=== PATIENT | female | born 1930 | race Caucasian/White ===

== ENCOUNTER 2016-06-07 17:03 | Inpatient (IN) | payer OTHER ==
[2016-06-07 18:02] VITALS: BMI 26.7
[2016-06-07] MEDS ORDERED: CARAFATE ONE (21:43)
[2016-06-07] MEDS: CARAFATE PO SCH (21:54)
[2016-06-08] MEDS: OXYCODONE PO PRN ×2 (02:38→21:29)
[2016-06-08] MEDS: CARAFATE PO SCH ×4 (06:32→20:26)
[2016-06-08] MEDS: PROTONIX PO SCH (06:32)
[2016-06-08] MEDS: ASPIRIN EC PO SCH (08:40)
--- NOTE | 2016-06-08 09:09 | HP ---
SOURCE: The source of this information is prior knowledge of the patient, review of her office records, her current chart as well as recent records at [facility]. PATIENT PROFILE: Ms. Rodas is an 85-year-old female resident of [place]. having had previous right hip surgery she wanted to have the left done. She was brought to [facility] on 06/03 and had such a surgery done. Her postop course was complicated by unexpected dysphagia. The day after surgery she actually got partially choked on some eggs. She had an esophagram that showed probable narrowing. She, on the , had an EGD that showed severe esophagitis and some narrowing. Because she had been given Xarelto postoperatively she could not have a dilatation. She was started on Carafate, a PPI with plans to have her on a soft diet and liquids and to treat this aggressively until she can at some future date have an EGD and dilatation. It was also decided that she would not be continued on Xarelto but instead simply on aspirin. Other than the incision, the pain, the decreased gait and a mild anemia of around 10, she didn't have any other real problems from her hip surgery. Altogether she was not walking well enough to want to go home and it was time to leave acute care; she chose to come here for further care. CHIEF COMPLAINT: "I need to get stronger." BRIEF HISTORY OF PRESENT ILLNESS: Ms. Rodas has had ongoing left hip pain PAST HISTORY: CHILDHOOD: Unremarkable. ALLERGIES/INTOLERANCE: FOSAMAX (dysphagia), PENICILLIN (question reaction years ago) CURRENT MEDICATIONS: Initially none but she comes out of [facility] with the followin. Aspirin 325 mg one a day 2. Oxycodone 5 mg every four hours p.r.n. pain HOSPITALIZATIONS/SURGERIES/PROCEDURES: She is 3, Para 3, AB 0. She had an upper GI/Barium swallow showing hiatal hernia, moderate to severe GERD on 08/17/04. She had an EGD with hiatal hernia and bile reflux GERD, Rizwan Hackett, 08/11/04. She had a positive urea slant, Dr. Marsh in July of 2004. She had a colonoscopy with diverticular changes, Rizwan Hackett on 08/20/04. She had colonoscopy with polyps, diverticular change, Dr. Salma Astorga on 10/10/09. Colonoscopy with diverticular changes, hemorrhoid changes, Dr. Rima Astorga, 02/26/13. She had a hysterectomy and left ovary removed for benign reasons, age 40. She had a right total hip, Es Zamandes, on 03/10/14. [facility] admissions include: 03/10 through 03/13/14 for right hip. [facility] admissions include 12/26 through 07/09 for GI bleed. FAMILY HISTORY: Diabetes in daughter, CVA in father, ovarian cancer in mother. HABITS: Never smoked or used alcohol. SOCIAL HISTORY: Three children, in 1955 and her 09/20/08 after a long marriage. 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 REVIEW OF SYSTEMS: GENERAL: Prior to this her weight has been stable. INTEGUMENT: No recent rash or wound. HEENT: No recent headache or visual change. NECK: No mass or pain. CHEST: No cough or wheeze. CARDIOVASCULAR: No chest pain, palpitations, only edema in the left lower leg. GI: No melena, hematochezia. : She couldn't void at [facility] and had to have a Chiang placed. MUSCULOSKELETAL/NEUROLOGIC: No TIA, CVA history or symptoms. PHYSICAL EXAMINATION: VITALS: Temperature 97.4, pulse 89, BP 150/74 left; 142/72 right, respirations 16, 02 sat 94% on room air. GENERAL: Younger than stated age white female in no obvious distress. INTEGUMENT: Eyegrounds are pink. Nonicteric sclerae. Mucous membranes moist. Only left lower extremity mild ankle edema. HEENT: Facial symmetry. Pupils equal, round, extraocular movements intact. NECK: No visible lymphadenopathy, thyromegaly, mass seen or felt and quite supple, nontender. CHEST: Clear. CARDIOVASCULAR: Regular S1, S2 without murmur or bruit. Distal pulses intact. GI: Soft. No rebound, guarding, mass or tenderness. MUSCULOSKELETAL/NEUROLOGIC: Bandages over the left hip area that are dry. Four quadrant movements are slowly equal and symmetric. She was not ambulated. PSYCHIATRIC: Alert, oriented times three. Pleasant personality. ASSESSMENT/PROBLEM LIST: 0. 85-year-old white female advanced age. 1. Allergies/intolerances - see above. 2. Procedural history - see above now inclusive left total hiop. 3. Family history - see above. 4. 3, Para 3, AB 0. 5. Menopausal. 6. Hiatal hernia by various modalities. 7. Gastroesophageal reflux by various modalities. 8. History of H. Pylori. 9. History of upper GI bleed. 10. Severe esophagitis and esophageal stricture. 11. Esophageal stricture. 12. Dysphagia. 13. Diverticular disease on colonoscopy. 14. Polyp disease by colonoscopy. 15. . 16. Degenerative joint disease - diffuse. 17. 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 18. Osteopenia/porosis - resistant for recommendations for intervention. 19. History of urinary incontinence. 20. Postop urinary retention. 21. History of gait difficulties. 22. History of depression. 23. Fatty liver by previous imaging. 24. History of hyperlipidemia. REASON FOR ADMISSION: # POSTOP LEFT HIP # LEFT HIP INCISION # LEFT HIP PAIN # ANEMIA - APPROXIMATELY 10 WITH COMPONENTS OF SURGICAL BLOOD LOSS # ANTICOAGULATION NEEDS - FROM XARELTO TO SIMPLY ASPIRIN # ACUTE GAIT DECLINE (ON CHRONIC) # URINARY RETENTION # ACUTE DYSPHAGIA PLAN: 1. PT/OT and try to increase her ambulation to that safe for home 2. Loosely follow her labs 3. Soft diet (watch for any signs of worsening) 4. Above mentioned medications in addition to Carafate and PPI 5. Eventual return back to GI for dilatation 6. Will try to wean Chiang at some point MTDD
--- NOTE | 2016-06-08 12:56 | RS.OTINEVL ---
Subjective - Patient information Date of Evaluation: 06/08/16 Date of Arrival on Unit: 06/07/16 Admitted From:: Facility Transfer Usual Living Arrangement: Alone Living Arrangement Comments: Pt lives at home alone and has a basement where her laundry is done. Pt has a good friend that will help her with laundry. Home Environment: House, Stairs (many), Rail Medical History Comments:: Left TAYLOR, Right TAYLOR years ago, hemorrhoids, osteoporosis, diverticulosis, gastroenteritis, joint pain. LATEX ALLERGY?: No Surgical History: Hip Replacement Surgical History Comments:: Left total hip replacement at [facility]. R TAYLOR years ago. Subjective Information/ Patient Comments:: I had the left hip done at [facility]. I had the right one done years ago and I went home then but I was younger. - Level of function Abilities prior to this admission: Patient was living home alone and completing her ADLS independently. Patient did not use a RW at this time. Current Level of Function: Partially Dependent Current Equipment Used at Home: Rolling walker, BSC over the toilet. Pain Assessment - Pain Pain Score: 0 Side: left Pain Location Body Site: Hip Pain Aggravating Factors: Changing Position, Standing Pain Alleviating Factors: Ice, Medication, Position Change Interventions - Objective Patient Orientation: Person, Place, Situation Observation: Pt appears to be doing well since her surgery. Pt has no edema in feet. Interventions - ROM Right Upper Extremity AROM: WFL's Left Upper Extremity AROM: WFL's - Strength Right Upper Extremity Strength: Mild Weakness Left Upper Extremity Strength: Mild Weakness - Sensation Right Upper Extremity Sensation: Intact/Normal Left Upper Extremity Sensation: Intact/Normal Balance - Sitting Balance Static Sitting Balance: Good Dynamic Sitting Balance: Good - Standing Balance Static Standing Balance: Fair Dynamic Standing Balance: Fair ADL Skills - Self Feeding Self Feeding: Independent - Grooming Grooming: Min Assist - Bathing Bathing UE: CGA Bathing LE: Min Assist - Dressing Dressing UE: CGA Dressing LE: Mod Assist - Toilet Management Toileting Management: CGA Functional Mobility - Bed Mobility Rolling R/L: Min Assist Scooting: CGA Supine to Sit: Min Assist Sit to Supine: Min Assist - Transfers Sit to Stand: Min Assist Stand to Sit: Min Assist Stand Pivot Transfers: Min Assist - Ambulation Weight Bearing Status: WBAT Assistive Device Used: Rolling Walker Assistance needed with Ambulation: Min Assist, 1 person assist - Safety Awareness Safety Awareness: Poor Additional Treatment Performed - Additional units charged ADL: 15 - Time with patient Total treatment time: 34 Activities Patient Interests:: Watching Television, Visiting/Socializing Patient Education Patient Education: Education of diagnosis, Home Exercise Program, Home Safety, Education of Plan of Care Teaching Recipient: Patient Teaching Methods: Discussion Assessment Problem List:: Decreased level of function, Weakness Rehab Potential: Good Further Therapy Indicated?: Yes Short Term Goals - Goals GOAL 1: Pt to increase BUE strength to 4/5 to increase I and safety. Goal to be met by: 06/15/16 GOAL 2: Pt to tolerate dynamic Standing balance to Fair Goal to be met by: 06/15/16 GOAL 3: Pt to be independent with home exercise program. Goal to be met by: 06/15/16 Plate Colorer Goals GOAL 1: Pt to be independent with BUE strength to 4+/5. Goal to be met by: 06/22/16 GOAL 2: Pt to increase dyn. std. balance to F/G with RW. Goal to be met by: 06/22/16 GOAL 3: Pt to be modified Independent with ADL at discharge. Goal to be met by: 06/22/16 Plan Plan of Care: Therapeutic EX, Neuromuscular Re-Educ, Therapeutic Activity, Self- Care/Home Management Frequency of Treatment: 1-2 X day, as tolerated Duration of Treatment: 2 Weeks Anticipated Discharge Destination: Home
--- NOTE | 2016-06-08 15:07 | RS.PTINEVL ---
Subjective - Patient information Date of Evaluation: 06/08/16 Date of Arrival on Unit: 06/07/16 Admitted From:: Facility Transfer Usual Living Arrangement: Alone Living Arrangement Comments: Pt lives at home alone and has a basement where her laundry is done. Pt has a good friend that will help her with laundry. Home Environment: House, Stairs (many) (to the basement, one step to get into home ), Rail Medical History Comments:: Left TAYLOR, Right TAYLOR years ago, hemorrhoids, osteoporosis, diverticulosis, gastroenteritis, joint pain. LATEX ALLERGY?: No Surgical History Comments:: Left total hip replacement at [facility]. R TAYLOR years ago. Subjective Information/ Patient Comments:: Patient states she is not in very much pain. States she cannot remember if she has had pain medication. States her right hip surgery went much better than this one on the left hip. States she came here to get stronger and be able to go home and not burden anyone. 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 Interventions - Objective Patient Orientation: Person, Place, Time, Situation Range of Motion - ROM Right Upper Extremity AROM: WFL's Left Upper Extremity AROM: WFL's Right Lower Extremity AROM: WFL's Left Lower Extremity AROM: Moderate limitation (left hip) Muscle Strength - Muscle Strength Right Upper Extremity Strength: Normal Left Upper Extremity Strength: Normal Comments:: Left LE strength at least 3/5 at the hip, knee 4 to 4+/5, ankle 4+/ 5. right LE generally 4 to 4+/5 throughout. Sensation - Sensation Right Lower Extremity Sensation: Intact/Normal Left Lower Extremity Sensation: Intact/Normal Balance - Sitting Balance and Reactions Static Sitting Balance: Good (-) Dynamic Sitting Balance: Good (-) - Standing Balance and Reactions Static Standing Balance: Fair (+) Dynamic Standing Balance: Fair (+) Functional Mobility - Bed Mobility Supine to Sit: Min Assist, 1 person assist, Verbal Cues, Tactile Cues Sit to Supine: Mod Assist, 1 person assist, Verbal Cues, Tactile Cues Comments:: Patient demonstrates difficulty initiating movement of the left LE for bed mobility. Requires assistance to bring the left LE to the side of the bed. - Transfers Sit to Stand: CGA, Min Assist, 1 person assist, Verbal Cues, Tactile Cues Stand to Sit: CGA, 1 person assist, 2 person assist Stand Pivot Transfers: Min Assist, 1 person assist, 2 person assist Comments:: Patient pulls herself up using the walker. Verbal cues given to push from the bed with her hands for sit to stand transfers. When returning to the bed, she wants to leave the walker before turning to sit. Explained the need to keep the walker with her when she turns around and sits down on bed or chair for safety. - Safety Awareness Safety Awareness: Poor Ambulation - Ambulation Weight Bearing Status: FWB Assistive Device Used: Rolling Walker Distance: 140 feet Assistance needed with Ambulation: CGA, 1 person assist, 2 person assist, Verbal Cues, Tactile Cues Gait Deviations: Narrow Based gait, Step-to gait, Forward posture, Short stride , Lacks step continuity Ambulation Comments: Patient scores 10/28 on Tinetti Assessment, which places her at a high risk for falls. Factors Affecting Ambulation: Decreased Balance, Pain, Weakness, Decreased ROM, Decreased Safety, Limited Endurance Treatment time - Time with patient Total treatment time: 19 (mins) Patient Education - Education Patient Education: Education of diagnosis, Education of Plan of Care Teaching Recipient: Patient Teaching Methods: Discussion Assessment - Assessment Problem List:: Decreased level of function, Requires training/education, Decreased safety/Risk of falls Rehab Potential: Good Further Therapy Indicated?: Yes Comments: Patient presents to be at a high risk for falls. She lives alone and was independent prior to this surgery. She demonstrates the need for strengthening and safety training with all mobility, including ambulation, to decrease her risk for falls and increase her functional ability. Short Term Goals GOAL #1: Supine to sit with CGA of one and verbal cues. Goal to be met by: 06/11/16 GOAL #2: Pt uses UE to push from seated surface consistently with sit to stand. Goal to be met by: 06/11/16 GOAL #3: Pt amb. with RW 150 feet with CGA and good base of support. Goal to be met by: 06/11/16 Retirement Goals GOAL #1: All bed mobility is independent. Goal to be met by: 06/15/16 GOAL #2: Pt independent with all transfers with good safety. Goal to be met by: 06/15/16 GOAL #3: Pt amb. with RW, household distances with good safety independently. Goal to be met by: 06/15/16 Plan Plan of Care: Therapeutic EX, Neuromuscular Re-Educ, Therapeutic Activity, Self- Care/Home Management Frequency of Treatment: 1-2 X day, as tolerated Duration of Treatment: 1 Week Anticipated Discharge Destination: Home
[2016-06-09] MEDS: PROTONIX PO SCH (05:39)
[2016-06-09] MEDS: CARAFATE PO SCH ×4 (05:39→20:27)
[2016-06-09] MEDS: ASPIRIN EC PO SCH (09:55)
[2016-06-09] MEDS ORDERED: ATIVAN PO STA (20:05)
[2016-06-10] MEDS: PROTONIX PO SCH (05:54)
[2016-06-10] MEDS: CARAFATE PO SCH ×4 (05:54→20:29)
[2016-06-10] MEDS: ASPIRIN EC PO SCH (09:00)
[2016-06-11] MEDS: PROTONIX PO SCH (06:01)
[2016-06-11] MEDS: CARAFATE PO SCH ×4 (06:01→21:09)
[2016-06-12] MEDS: OXYCODONE PO PRN (00:07)
[2016-06-12] MEDS: PROTONIX PO SCH (05:39)
[2016-06-12] MEDS: CARAFATE PO SCH ×4 (05:39→21:22)
[2016-06-13] MEDS: CARAFATE PO SCH ×2 (05:34→11:27)
[2016-06-13] MEDS: PROTONIX PO SCH (05:34)
[2016-06-13 06:15] VITALS: BP 118/63; TEMP 98.4
--- NOTE | 2016-06-14 08:42 | DS ---
SOURCE: The source of this information is prior knowledge of the patient, review of her office records, her current chart as well as recent records at [facility]. PATIENT PROFILE: Ms. Rodas is an 85-year-old female resident of [place]. having had previous right hip surgery she wanted to have the left done. She was brought to [facility] on 06/03 and had such a surgery done. Her postop course was complicated by unexpected dysphagia. The day after surgery she actually got partially choked on some eggs. She had an esophagram that showed probable narrowing. She, on the , had an EGD that showed severe esophagitis and some narrowing. Because she had been given Xarelto postoperatively she could not have a dilatation. She was started on Carafate, a PPI with plans to have her on a soft diet and liquids and to treat this aggressively until she can at some future date have an EGD and dilatation. It was also decided that she would not be continued on Xarelto but instead simply on aspirin. Other than the incision, the pain, the decreased gait and a mild anemia of around 10, she didn't have any other real problems from her hip surgery. Altogether she was not walking well enough to want to go home and it was time to leave acute care; she chose to come here for further care. CHIEF COMPLAINT: "I need to get stronger." BRIEF HISTORY OF PRESENT ILLNESS: Ms. Rodas has had ongoing left hip pain PAST HISTORY: CHILDHOOD: Unremarkable. ALLERGIES/INTOLERANCE: FOSAMAX (dysphagia), PENICILLIN (question reaction years ago) CURRENT MEDICATIONS: Initially none but she comes out of [facility] with the followin. Aspirin 325 mg one a day 2. Oxycodone 5 mg every four hours p.r.n. pain HOSPITALIZATIONS/SURGERIES/PROCEDURES: She is 3, Para 3, AB 0. She had an upper GI/Barium swallow showing hiatal hernia, moderate to severe GERD on 08/17/04. She had an EGD with hiatal hernia and bile reflux GERD, Rizwan Hackett, 08/11/04. She had a positive urea slant, Dr. Marsh in July of 2004. She had a colonoscopy with diverticular changes, Rizwan Hackett on 08/20/04. She had colonoscopy with polyps, diverticular change, Dr. Salma Astorga on 10/10/09. Colonoscopy with diverticular changes, hemorrhoid changes, Dr. Rima Astorga, 02/26/13. She had a hysterectomy and left ovary removed for benign reasons, age 40. She had a right total hip, Es Zamandes, on 03/10/14. [facility] admissions include: 03/10 through 03/13/14 for right hip. [facility] admissions include 12/26 through 07/09 for GI bleed. FAMILY HISTORY: Diabetes in daughter, CVA in father, ovarian cancer in mother. HABITS: Never smoked or used alcohol. SOCIAL HISTORY: Three children, in 1955 and her 09/20/08 after a long marriage. 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 REVIEW OF SYSTEMS: GENERAL: Prior to this her weight has been stable. INTEGUMENT: No recent rash or wound. HEENT: No recent headache or visual change. NECK: No mass or pain. CHEST: No cough or wheeze. CARDIOVASCULAR: No chest pain, palpitations, only edema in the left lower leg. GI: No melena, hematochezia. : She couldn't void at [facility] and had to have a Chiang placed. MUSCULOSKELETAL/NEUROLOGIC: No TIA, CVA history or symptoms. PHYSICAL EXAMINATION: VITALS: Temperature 97.4, pulse 89, BP 150/74 left; 142/72 right, respirations 16, 02 sat 94% on room air. GENERAL: Younger than stated age white female in no obvious distress. INTEGUMENT: Eyegrounds are pink. Nonicteric sclerae. Mucous membranes moist. Only left lower extremity mild ankle edema. HEENT: Facial symmetry. Pupils equal, round, extraocular movements intact. NECK: No visible lymphadenopathy, thyromegaly, mass seen or felt and quite supple, nontender. CHEST: Clear. CARDIOVASCULAR: Regular S1, S2 without murmur or bruit. Distal pulses intact. GI: Soft. No rebound, guarding, mass or tenderness. MUSCULOSKELETAL/NEUROLOGIC: Bandages over the left hip area that are dry. Four quadrant movements are slowly equal and symmetric. She was not ambulated. PSYCHIATRIC: Alert, oriented times three. Pleasant personality. ASSESSMENT/PROBLEM LIST: 0. 85-year-old white female advanced age. 1. Allergies/intolerances - see above. 2. Procedural history - see above now inclusive left total hiop. 3. Family history - see above. 4. 3, Para 3, AB 0. 5. Menopausal. 6. Hiatal hernia by various modalities. 7. Gastroesophageal reflux by various modalities. 8. History of H. Pylori. 9. History of upper GI bleed. 10. Severe esophagitis and esophageal stricture. 11. Esophageal stricture. 12. Dysphagia. 13. Diverticular disease on colonoscopy. 14. Polyp disease by colonoscopy. 15. . 16. Degenerative joint disease - diffuse. 17. 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 18. Osteopenia/porosis - resistant for recommendations for intervention. 19. History of urinary incontinence. 20. Postop urinary retention. 21. History of gait difficulties. 22. History of depression. 23. Fatty liver by previous imaging. 24. History of hyperlipidemia. REASON FOR ADMISSION: # POSTOP LEFT HIP # LEFT HIP INCISION # LEFT HIP PAIN # ANEMIA - APPROXIMATELY 10 WITH COMPONENTS OF SURGICAL BLOOD LOSS # ANTICOAGULATION NEEDS - FROM XARELTO TO SIMPLY ASPIRIN # ACUTE GAIT DECLINE (ON CHRONIC) # URINARY RETENTION # ACUTE DYSPHAGIA HOSPITAL COURSE: She received [facility] care and supervision; her incision was healing nicely at discharge. Her vitals remained stable. She swallowed well and there was no signs of choking; she was continued on Protonix and Carafate. She received therapy; initially she wanted to go home early but therapy did not think she was ready; by the date of discharged they thought she was markedly improved. She had labs while here. She did have a brief epistaxis and we stopped her Aspirin as she was now up and about fairly regularly. DISCHARGE ASSESSMENT/PROBLEM LIST (CHANGED FROM ADMISSION): # Post Op right hip # Post Op right hip incision- doing well # Post Op right hip pain- doing well # Post Op right hip gait declined- improving # Post Op right hip anemia- mild and tolerated # Post Op anticoagulation- Aspirin ( the cause of severe esophagitis); stopped for epistaxis # Brief Epistaxis # Esophagitis # Post Op dysphagia PLAN: 1. Discharge two medications A. Oxycodone [address] Nicole-Ortho earlier B. Protonix 41mg a day #30 0 refills C. Carafate liquid 10 cc AC and HS for two weeks- sent to her drug store D. Home Health referral; This follows a face to face visit today and a need for her to have Home Health to monitor all the above problems and to continue her therapy. 2. Followup A. Dr. Zhao in one week B. Dr. Corey Gaytan as he directed. Prognosis: Guarded Condition: Stable improving. MTDD
--- NOTE | 2016-06-16 07:28 | PN ---
DATE OF VISIT: 06/08/16 SUBJECTIVE: Ms. Rodas, because of increasing pain, went in for a left total hip. The day after surgery she got choked on her eggs; upper GI swallow and EGD proved that she had some esophagitis and possible stricture. Decision was made since she had had one Xarelto to treat this conservatively with Carafate and Protonix. Since this and in general, she was not progressing as much as her previous orthopedic intervention; she has elected to come here for therapy and skilled care nursing. She feels better today, she has actually walked some with therapy. She is having no dysphagia of soft foods and drink that she is taking here. OBJECTIVE: V/S: Temperature 97.9, pulse 73, BP 132/76, respirations 20. GENERAL: No obvious distress. CHEST: Clear. CARDIOVASCULAR: S1, S2 without murmur. GI: Nontender. MUSCULOSKELETAL/NEUROLOGIC: Her hip incision is intact and dry. ASSESSMENT: # Postop left total hip # Postop left hip incision # Left hip postop pain # Left hip postop anticoagulation being treated with aspirin and increased activity # Dysphagia # Esophagitis # Postop anemia PLAN: 1. Continue therapy 2. Labs in a few days MTDD
--- NOTE | 2016-06-16 13:29 | PN ---
DATE OF VISIT: 06/09/16 SUBJECTIVE: The patient was transferred here from [facility] after having a total hip. It was complicated by dysphagia; she had food that actually hung up in her esophagus for a period of time. An EGD showed severe esophagitis and since she had had Xarelto it was decided that she couldn't be dilated so she is being treated with Carafate and a PPI. All of this slowed down her ambulation and reaching a point where she could go home. Now today she says she has had a wonderful day and wants to go home tonight. OBJECTIVE: V/S: Temperature 97.7, pulse 102, respirations 16, BP 126/67. GENERAL: No acute distress. CHEST: Clear. CARDIOVASCULAR: S1, S2 without murmur. ASSESSMENT: # Postop left hip # Postop left hip incision # Left hip pain # Anemia - approximately 10 with components of surgical blood loss # Anticoagulation - from Xarelto to simply aspirin # Acute gait decline (acute on chronic) - improved # Urinary retention - resolved # Acute dysphagia - associated with esophagitis # Esophagitis - being treated PLAN: 1. She accepted the fact that at this late hour I didn't feel how we could make the best discharge; we needed input from therapy, nursing and even family or no one is surprised by going home tonight. 2. Maybe home tomorrow. SANIYA
--- NOTE | 2016-06-16 13:37 | PN ---
DATE OF VISIT: 06/10/16 SUBJECTIVE: I contacted the staff earlier this morning; therapy did not feel that she was able to go home. They note that she continues to have some weakness and instability in her gait. In addition to this, she had nonsustained episode of epistaxis on her aspirin 325 mg; which we held. She is disappointed. She denies chest pain, shortness of breath. OBJECTIVE: V/S: Temperature 97.9, pulse 84, respiratory rate 16, BP 154/72. GENERAL: No obvious distress. HEENT: Dried blood in the left nostril, Kiesselbach Plexus, no active bleeding. CHEST: Clear. CARDIOVASCULAR: S1, S2 without murmur. ASSESSMENT: # Postop left hip # Left hip incision - doing well. # Left hip pain - doing well. # Anemia - approximately 10 with components of surgical blood loss # Anticoagulation needs- from Xarelto to simple aspirin 325 and now placing this on hold. # Epistaxis - brief today # Rhinitis - interior nasal irritation # Acute gait declne (acute on chronic) - improved # Urinary retention - resolved # Acute dysphagia - doing well with diminished diet # Esophagitis - treated with Carafate and PPI PLAN: 1. She agrees to stay through the weekend into the first part of next week. 2. Holding aspirin. SANIYA
== END 2016-06-13 17:20 | disposition home or self-care (01) | DRG 560 ==
LOC: MEDSURG B 17:03
PROVIDERS: ADMIT Family Medicine; ATTEND Family Medicine
DX: Z47.1 Aftercare following joint replacement surgery (principal); Z96.642 Presence of left artificial hip joint; M25.552 Pain in left hip; D62 Acute posthemorrhagic anemia; D68.32 Hemorrhagic disorder due to extrinsic circulating anticoagulants; R33.9 Retention of urine, unspecified; R13.19 Other dysphagia; R26.2 Difficulty in walking, not elsewhere classified; R04.0 Epistaxis; T45.515A Adverse effect of anticoagulants, initial encounter; Y92.230 Patient room in hospital as the place of occurrence of the external cause; Z79.82 Long term (current) use of aspirin
CPT/HCPCS: 87081; 97802; 97803

== ENCOUNTER 2016-08-01 07:06 | Day surgery (SDC) ==
[2016-08-01] MEDS ORDERED: LIDOCAINE 1% 20 ML MDV ID ONE (07:15)
[2016-08-01] MEDS ORDERED: LIDOCAINE 1% 20 ML MDV ONE (07:15)
[2016-08-01] MEDS ORDERED: VERSED ONE (08:45)
[2016-08-01] MEDS ORDERED: SUBLIMAZE ONE (08:45)
[2016-08-01] MEDS ORDERED: DIPRIVAN 20 ML VIAL IVP ONE (08:45)
[2016-08-01 10:00] VITALS: BP 130/61
[2016-08-01 10:10] VITALS: TEMP 98
--- NOTE | 2016-08-02 09:22 | OP ---
PROCEDURE: EGD (ESOPHAGOGASTRODUODENOSCOPY) with Morales dilation. ENDOSCOPIST: Víctor RAZA M.D. INDICATION: Dysphagia INSTRUMENT: GIFH-190. MEDICATION: PER ANESTHESIA. PROCEDURE: The patient was positioned for endoscopy. The oropharynx was sprayed with Cetacaine spray and the endoscope was advanced through the bite block into the esophagus and from there advanced to the duodenum. The duodenum was normal. The pylorus was patent. The antrum is normal. A hiatus hernia is seen on the retro flex exam. The Z-line was at approximately 33cm. She had a very torturous distal esophagus. The scope was withdrawn and a 46 German Morales was gentle passed without difficult. She tolerated the procedure without immediate complication. PLAN: 1. Repeat as need. 2. She should continue the PPI. 3. I suspect a lot of her symptoms were related to her esophagitis. 4. She can resume anticoagulation today if it is indicated. CC: Dr. Zhao ADDENDUM: There were no photographs with this exam related instrument malfunction. MTDD
== END 2016-08-01 10:25 | disposition home or self-care (01) ==
LOC: SURG 07:06
PROVIDERS: ATTEND Internal Medicine Gastroenterology
DX: R13.10 Dysphagia, unspecified (principal); K44.9 Diaphragmatic hernia without obstruction or gangrene; K22.8 Other specified diseases of esophagus

== ENCOUNTER 2016-09-24 08:35 | Emergency (ER) ==
[2016-09-24 08:45] VITALS: TEMP 96.8; BMI 24.4
--- NOTE | 2016-09-24 08:55 | ED.PDOC ---
General ED Provider: Dr. LINA GALICIA Chief Complaint: Fall Stated Complaint: patient is an 86 year old female who statse she a never fallen before, was having trouble opening her door and her hands were full and lost her balance and fell. c/o pain to left groin area and left shoulder. Unable to bear weight due to pain. states left shoulder is sore. Has had prior bilateral hip replacemt. At rest he pain is minimal took Tylenol last night and this Morning. Time Seen by Physician: 08:52 Mode of Arrival: Wheelchair Information Source: Patient Exam Limitations: No limitations Primary Care Provider: BRAULIO MARTINEZ Nursing and Triage Documentation Reviewed and Agree: Yes Musculoskeletal Complaint Exam - Shoulder Pain Complaint/Exam Mechanism of Injury: Reports: Trauma Onset/Duration: 1 day Symptoms Are: Still present Timing: Intermittent Initial Severity: Moderate Current Severity: Mild Location: Reports: Diffuse Character: Reports: Aching Alleviating: Reports: Rest Aggravating: Reports: None Associated Signs and Symptoms: Denies: Swelling, Redness, Bruising, Fever, Weakness, Numbness, Tingling DVT Risk Factors: Reports: None Septic Arthritis Risk Factors: Reports: None Related Surgical History: Reports: None Shoulder Findings: Absent: Swelling, Ecchymosis, Abnormal contour, Rotation, Ligamentous instability, Laceration, Erythema, Warmth, Blisters, Foreign body, Adson's Sign Limited Range of Motion: Absent: Abduction, Adduction, Flexion, Extension, Internal rotation, External rotation, Rotator cuff muscles, Rotator cuff insertion Differential Diagnoses: AC Seperation, Sprain, Strain, Tendonitis - Hip/Pelvis Complaint/Exam Location of Pain: Reports: Groin, Pelvis Mechanism of Injury: Reports: Trauma Onset/Duration: 1 day Symptoms Are: Still present Initial Severity: Severe Current Severity: Moderate Character: Reports: Throbbing Aggravating: Reports: Movement, Weight bearing Alleviating: Reports: Rest Associated Signs and Symptoms: Denies: Swelling, Redness, Bruising, Fever, Weakness, Dizziness, Syncope, Abdominal pain, Knee pain Able to Bear Weight: No Septic Arthritis Risk Factors: Reports: None Related Surgical History: Reports: Joint Replacement Pelvis Palpation: Stable Hip/Pelvis Findings: Absent: Extremity shortened, Swelling, Ecchymosis, Erythema , Warmth, Blisters Tenderness: Present: Left, PSIS Range of Motion Limited In: Absent: Flexion, Extension, Abduction, Adduction, Internal rotation, External rotation NV Bundle Intact Distal to Injury: No Differential Diagnoses: Sciatica, Sprain, Strain Review of Systems - Review Of Systems Constitutional: Reports: No symptoms Eyes: Reports: No symptoms Ears, Nose, Mouth, Throat: Reports: No symptoms Respiratory: Reports: No symptoms Cardiac: Reports: No symptoms GI: Reports: No symptoms : Reports: No symptoms Musculoskeletal: Reports: Joint pain Skin: Reports: No symptoms Neurological: Reports: Anxiety Endocrine: Reports: No symptoms Hematologic/Lymphatic: Reports: No symptoms All Other Systems: Reviewed and Negative Past Medical History - Past Medical History Previously Healthy: Yes Endocrine: Reports: None Cardiovascular: Reports: None Respiratory: Reports: None Hematological: Reports: None Gastrointestinal: Reports: None Genitourinary: Reports: None 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 ), Unknown - Family History Family History: Reports: Unknown - Social History Smoking Status: Never smoker Hx Substance Use: No Alcohol Screening: Occasionally Physical Exam - Physical Exam Appearance: Well-nourished, Thin Ill-appearing: Mild Eyes: ANNELIESE, EOMI, Conjunctiva clear ENT: Ears normal, Nose normal, Oropharynx normal Neck: Supple Respiratory: Airway patent, Breath sounds clear, Breath sounds equal, Respirations nonlabored Cardiovascular: RRR, Pulses normal, No rub, No murmur GI/: Soft, Nontender, No masses, Bowel sounds normal, No Organomegaly Musculoskeletal: Normal strength, ROM intact, No edema, No calf tenderness Skin: Warm, Dry, Normal color Neurological: Sensation intact, Motor intact, Reflexes intact, Cranial nerves intact, Alert, Oriented Psychiatric: Anxious Interpretation - Radiology Interpretation Radiology Interpretation By: Radiologist Radiology Results: Positive (Mildly displaced Pubic rami fracture) Exam Interpreted: CT Scan Radiology Interpretation By: ED Physician Radiology Results: Negative Exam Interpreted: Other (left shoulder ) Re-Evaluation - Re-Evaluation Time of Re-Evaluation: 10:28 Status: Improved Critical Care Note - Critical Care Note Total Time (mins): 0 Comments: offered Admission but declined Course - Course Orders, Labs, Meds: Orders Category Date Time Status CT PELVIS W/O CONTRAST Stat RADS 09/24/16 08:57 Completed SHOULDER, LEFT MIN 2V Stat RADS 09/24/16 08:57 Completed Vital Signs: Temp Pulse Resp BP Pulse Ox 09/24/16 10:30 77 16 140/70 99 09/24/16 08:38 96.8 F L 82 16 166/70 H 97 Departure - Departure Time of Disposition: 10:19 Disposition: HOME SELF-CARE Discharge Problem: Pubic ramus fracture, Shoulder sprain Instructions: Pelvic Fracture (ED), Shoulder Sprain (ED) Condition: Stable Pt referred to PMD for follow-up: Yes Additional Instructions: Take over the counter pain medication Take Tramadol for severe pain Return if worse. Follow up in 3 days Prescriptions: Tramadol HCl [Ultram] 50 mg PO Q6H PRN #25 tablet PRN Reason: Severe Pain Allergies/Adverse Reactions: Allergies Penicillins Adverse Reaction (Unverified 09/24/16 08:46) Home Medications: Ambulatory Orders Calcium Carbonate [Calcium] 500 mg PO DAILY 08/01/16 Vitamin D3/Folic Acid [Roxifol-D Tablet] 500 unit PO DAILY 08/01/16 Tramadol HCl [Ultram] 50 mg PO Q6H PRN #25 tablet 09/24/16 Disposition Discussed With: Patient, Family
--- NOTE | 2016-09-24 09:26 | DI ---
EXAM: Left shoulder three view HISTORY: Fall, shoulder pain COMPARISON: None FINDINGS: No fracture or dislocation. 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 Mild osteoarthritis acromioclavicular joint with join t space narrowing. Several well marginated ossifications or calcifications about the shoulder could represent small loose body formation. Humeral head is high-riding. IMPERSSION: 1. No fracture or dislocation. 2. Mild to moderate osteoarthritis. Possible loose body formation. 3. High-riding humeral head suggesting rotator cuff tear.
--- NOTE | 2016-09-24 09:55 | CT ---
EXAM: CT scan of the pelvis without contrast HISTORY: Patient fell, pain TECHNIQUE: Imaging of the pelvis was performed without contrast. Axial images and coronal and sagi ttal reconstructions were provided for interpretation. FINDINGS: The patient has had previous total bilateral hip arthroplasty. There is a fracture of th e left inferior pubic ramus. The sacrum appears intact. There is a normal appearance of the iliac wings. There is additional fracture of the medial aspect of the left superior pubic ramus near the j unction with the pubic bone as well as more laterally along the junction with the left acetabulum. IMPRESSION: There is a mildly displaced fracture of the inferior pubic ramus. There are additional fractures of the medial and lateral superior left pubic ramus. There has been previous total bilateral hip arthroplasty.
[2016-09-24 10:55] VITALS: BP 140/70
== END 2016-09-24 10:39 | disposition home or self-care (01) ==
LOC: ED 08:35
DX: S32.592A Other specified fracture of left pubis, initial encounter for closed fracture (principal); S43.402A Unspecified sprain of left shoulder joint, initial encounter; W19.XXXA Unspecified fall, initial encounter
CPT/HCPCS: 99283

== ENCOUNTER 2017-04-24 08:49 | Day surgery (SDC) ==
[2017-04-24] MEDS ORDERED: LIDOCAINE 1% 20 ML MDV ID ONE (09:10)
[2017-04-24] MEDS ORDERED: LIDOCAINE 1% 20 ML MDV ID STA (09:15)
[2017-04-24] MEDS ORDERED: DIPRIVAN 20 ML VIAL IVP ONE (10:15)
[2017-04-24] MEDS ORDERED: VERSED ONE (10:15)
[2017-04-24 11:12] VITALS: BP 118/69; TEMP 97.7
--- NOTE | 2017-04-25 08:34 | OP ---
PROCEDURE: COLONOSCOPY TO THE CECUM. ENDOSCOPIST: Víctor RAZA M.D. INDICATION: RECTAL BLEEDING INSTRUMENT: PCFH-190. MEDICATION: PER ANESTHESIA. PROCEDURE: The patient was positioned for colonoscopy. The digital rectal exam was negative. The colonoscope was inserted through the anus and advanced to the cecum. The cecum was identified using the ileocecal valve and the appendiceal orifice as landmarks. The scope was slowly withdrawn through an adequately prepped colon. Diverticuli were noted throughout the left colon. Significant hemorrhoids were seen on retroflex exam. No other abnormalities were noted. The patient tolerated the procedure well without any immediate complications. Withdraw time is 7 minutes and 6 seconds. PLAN: 1. Local care for her hemorrhoids 2. Repeat colonoscopy as needed CC: Dr. Abundio KOTHARI
== END 2017-04-24 11:40 | disposition home or self-care (01) ==
LOC: SURG 08:49
PROVIDERS: ATTEND Internal Medicine Gastroenterology
DX: K62.5 Hemorrhage of anus and rectum (principal); K64.8 Other hemorrhoids; K57.30 Diverticulosis of large intestine without perforation or abscess without bleeding

== ENCOUNTER 2017-07-04 19:03 | Emergency (ER) ==
[2017-07-04 19:06] VITALS: TEMP 97.9; BMI 23.6
[2017-07-04] MEDS ORDERED: CATAPRES PO STA (19:35)
[2017-07-04] MEDS ORDERED: ASPIRIN CHEWABLE PO STA (19:35)
--- NOTE | 2017-07-04 19:38 | ED.PDOC ---
General ED Provider: Dr. PURNIMA GAINES Chief Complaint: Hypertension Stated Complaint: Came for the elevated BP, she has usually low BP, today its been high and hurting in the left arm. been stressed out lately Time Seen by Physician: 19:37 Mode of Arrival: Walk-In Information Source: Patient, Family Exam Limitations: No limitations Primary Care Provider: BRAULIO MARTINEZ Nursing and Triage Documentation Reviewed and Agree: Yes Reviewed sepsis parameters & appropriate labs ordered?: No System Inflammatory Response Syndrome: Not Applicable Sepsis Protocol: For patient's 13 years and over: Temp is 96.8 and below OR 101 and greater Pulse >90 BPM Resp >20/minute Acutely Altered Mental Status Are patient's symptoms suggestive of a new infection, such as: -Pneumonia -Skin, Soft Tissue -Endocarditis -UTI -Bone, Joint Infection -Implantable Device -Acute Abdominal Infection -Wound Infection -Meningitis -Blood Stream Catheter Infection -Unknown Cardiovascular Complaint Exam - Hypertension Complaint/Exam Symptoms Are: Still present Timing: Constant Aggravating: Reports: None Alleviating: Reports: None Associated Signs and Symptoms: Reports: Chest pain, Numbness, Tingling. Denies : Vision changes, Anxiety, Recent stress, Headache, Weakness, Dizziness, Short of air, Swelling Related Surgical History: Reports: None Cardiac Risk Factors: Reports: None Recent Change in Medications: No A/V [place]icking: No Papilledema Present: No JVD Present: No Carotid Bruit Present: No Femoral Pulses Bounding: No Differential Diagnoses: Hypertension, Hypertensive Crisis, Angina Quality Indicator For Non-Traumatic Chest Pain/Syncope: EKG Performed Review of Systems - Review Of Systems Constitutional: Reports: No symptoms Eyes: Reports: No symptoms Ears, Nose, Mouth, Throat: Reports: No symptoms Respiratory: Reports: No symptoms Cardiac: Reports: Chest pain GI: Reports: No symptoms : Reports: No symptoms Musculoskeletal: Reports: No symptoms Skin: Reports: No symptoms Neurological: Reports: No symptoms Endocrine: Reports: No symptoms Hematologic/Lymphatic: Reports: No symptoms All Other Systems: Reviewed and Negative Past Medical History - Past Medical History Previously Healthy: Yes Endocrine: Reports: None Cardiovascular: Reports: Hypertension Respiratory: Reports: None Hematological: Reports: None Gastrointestinal: Reports: None Genitourinary: Reports: None Neuro/Psych: Reports: CVA Musculoskeletal: Reports: None Cancer: Reports: None Last Menstrual Period: YEARS AGO - Surgical History General Surgical History: Reports: Hysterectomy (partial), Orthopedic ( bilateral Hip repalcement ), Other (Right Kidney Translocation. ), Unknown - Family History Family History: Reports: Unknown - Social History Smoking Status: Never smoker Hx Substance Use: No Alcohol Screening: None - Immunizations Tetanus Shot up to Date: Yes Physical Exam - Physical Exam Appearance: Well-appearing, No pain distress, Well-nourished Eyes: ANNELIESE, EOMI, Conjunctiva clear ENT: Ears normal, Nose normal, Oropharynx normal Respiratory: Airway patent, Breath sounds clear, Breath sounds equal, Respirations nonlabored Cardiovascular: RRR, Pulses normal, No rub, No murmur GI/: Soft, Nontender, No masses, Bowel sounds normal, No Organomegaly Musculoskeletal: Normal strength, ROM intact, No edema, No calf tenderness Skin: Warm, Dry, Normal color Neurological: Sensation intact, Motor intact, Reflexes intact, Cranial nerves intact, Alert, Oriented Psychiatric: Affect appropriate, Mood appropriate Interpretation - Radiology Interpretation Radiology Interpretation By: Radiologist Radiology Results: Negative (old stroke) Exam Interpreted: CT Scan Re-Evaluation - Re-Evaluation Time of Re-Evaluation: 22:04 Status: Improved Critical Care Note - Critical Care Note Total Time (mins): 25 Course - Course Hematology/Chemistry: 07/04/17 20:00 07/04/17 20:00 Orders, Labs, Meds: Lab Review 07/04/17 07/04/17 20:00 20:00 WBC 4.99 RBC 4.19 L Hgb 13.9 Hct 39.3 MCV 93.8 MCH 33.2 H MCHC 35.4 RDW Coeff of Vinicius 13.5 Plt Count 171 Immature Gran % (Auto) 0.2 Neut % (Auto) 54.9 Lymph % (Auto) 27.3 [place] % (Auto) 12.2 H Eos % (Auto) 5.0 Baso % (Auto) 0.4 Immature Gran # (Auto) 0.0 Neut # 2.7 Lymph # 1.4 [place] # 0.6 Eos # 0.3 Baso # 0.0 Sodium 141 Potassium 4.3 Chloride 106 Carbon Dioxide 27 Anion Gap 12.3 BUN 18 Creatinine 0.86 Estimated GFR (MDRD) 62.00 BUN/Creatinine Ratio 20.93 Glucose 120 H Calcium 9.3 Total Bilirubin 0.3 AST 18 ALT 12 Alkaline Phosphatase 100 Total Creatine Kinase 50 Troponin I 0.0160 Total Protein 6.5 Albumin 3.6 Globulin 2.9 Albumin/Globulin Ratio 1.24 Orders Category Date Time Status EKG-(ED ONLY) Stat CARDIO 07/04/17 19:21 Completed ED IV/MEDIPORT/POWERPORT .ONCE EMERGENCY 07/04/17 19:35 Active CBC W/ AUTO DIFF Stat LAB 07/04/17 20:00 Completed COMPREHENSIVE METABOLIC PANEL Stat LAB 07/04/17 20:00 Completed CREATINE KINASE Stat LAB 07/04/17 20:00 Completed TROPONIN I Stat LAB 07/04/17 20:00 Completed 0.9 % Sodium Chloride [Saline Flush] MEDS 07/04/17 19:35 Ordered 1 syr IVF PRN PRN Alprazolam [Xanax] MEDS 07/04/17 20:46 Discontinued 0.25 mg PO ONCE STA Aspirin [Aspirin Chewable] MEDS 07/04/17 19:35 Discontinued 324 mg PO ONCE STA Clonidine HCl [Catapres] MEDS 07/04/17 19:35 Discontinued 0.2 mg PO ONCE STA CHEST, 1V AP ONLY Stat RADS 07/04/17 19:[address] HEAD W/O CONTRAST Stat RADS 07/04/17 19:38 Completed Medications Generic Name Dose Route Start Last Admin Trade Name Freq PRN Reason Stop Dose Admin Sodium Chloride 1 syr 07/04/17 19:35 Saline Flush IVF PRN PRN To flush IV Discontinued Medications Generic Name Dose Route Start Last Admin Trade Name Freq PRN Reason Stop Dose Admin Alprazolam 0.25 mg 07/04/17 20:46 07/04/17 21:09 Xanax PO 07/04/17 20:47 Not Given ONCE STA Aspirin 324 mg 07/04/17 19:35 07/04/17 19:47 Aspirin Chewable PO 07/04/17 19:36 Not Given ONCE STA Clonidine 0.2 mg 07/04/17 19:35 07/04/17 19:55 Catapres PO 07/04/17 19:36 0.2 mg ONCE STA Administration Vital Signs: Temp Pulse Resp BP Pulse Ox 07/04/17 21:48 101/54 L 07/04/17 21:22 103/57 L 07/04/17 21:10 105/59 L 07/04/17 20:51 118/69 02/06/18 20:34 135/77 07/04/17 19:04 97.9 F 91 H 14 181/102 H 95 ULICES Risk Score ULICES Risk Score: Risk Score Odds of by 30D 0 0.1 (0.1-0.2) 1 0.3 (0.2-0.3) 2 0.4 (0.3-0.5) 3 0.7 (0.6-0.9) 4 1.2 (1.0-1.5) 5 2.2 (1.9-2.6) 6 3.0 (2.5-3.6) 7 4.8 (3.8-6.1) Departure - Departure Time of Disposition: 22:03 Disposition: HOME SELF-CARE Discharge Problem: Hypertension Qualifiers: Hypertension type: essential hypertension Qualified Code(s): I10 - Essential ( primary) hypertension Instructions: Hypertension (ED) Condition: Stable Pt referred to PMD for follow-up: Yes IPMP verified?: No Additional Instructions: keep checking the BP f/u with PMD Prescriptions: Alprazolam [Xanax] 0.25 mg PO BID #10 tablet Allergies/Adverse Reactions: Allergies Penicillins Adverse Reaction (Unverified 09/24/16 08:46) Home Medications: Ambulatory Orders Alprazolam [Xanax] 0.25 mg PO BID #10 tablet 07/04/17 Disposition Discussed With: Patient, Family
--- NOTE | 2017-07-04 20:05 | DI ---
EXAM: Chest, single view 07/04/2017 HISTORY: Chest pain COMPARISON: 08/13/2015 FINDINGS / IMPRESSION: Cardiomediastinal contours appear stable. Basilar interstitial opacitis may relate to atelectasis or pneumonitis. There is no focal pulmonary consolidation. No pleural effusio n or pneumothorax.
--- NOTE | 2017-07-04 20:08 | CT ---
EXAM: CT head without contrast 07/04/2017. Sagittal and coronal reformatted images obtained HISTORY: Weakness COMPARISON: None. FINDINGS: There is no evidence of intracranial hemorrhage. The midline is maintained. There is no h ydrocephalus. Generalized atrophy. Chronic small vessel ischemic changes. 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 No cerebellar tonsillar ectopia . Evaluation of the calvarium shows no fracture. The mastoid air cells are normally pneumatized. IMPRESSION: 1. No intracranial hemorrhage 2. Left MCA distribution post-infarctive encephalomalacia. 3. Atrophy and small vessel ischemic change. 4. There is no prior study for comparison. If there is high clinical suspicion for acute ischemia t hen MRI could be obtained.
[2017-07-04] MEDS ORDERED: XANAX PO STA (20:46)
[2017-07-04 21:48] VITALS: BP 101/54
== END 2017-07-04 22:13 | disposition home or self-care (01) ==
LOC: ED 19:03
DX: I10 Essential (primary) hypertension (principal); R07.9 Chest pain, unspecified; R20.2 Paresthesia of skin; R20.0 Anesthesia of skin; M79.602 Pain in left arm; Z86.73 Personal history of transient ischemic attack (TIA), and cerebral infarction without residual deficits
CPT/HCPCS: 36415; 80053; 82550; 84484; 85025; 93005; 93010; 99284

== ENCOUNTER 2018-10-03 11:23 | Emergency (ER) ==
[2018-10-03 11:26] VITALS: BP 151/55; TEMP 98.3; BMI 22.9
--- NOTE | 2018-10-03 12:40 | ED.PDOC ---
General ED Provider: Dr. LAURA TABARES Chief Complaint: Diarrhea Stated Complaint: Diarrhea x 2 days no GI BLEED REPORTED ATE SOME FISH THAT MAY HAVE BEEN SPILED Time Seen by Physician: 11:33 (SEEN WITH NURSE AT ALL TIMES ) Mode of Arrival: Walk-In Information Source: Patient Exam Limitations: No limitations Primary Care Provider: BRAULIO MARTINEZ Nursing and Triage Documentation Reviewed and Agree: Yes Does patient meet sepsis criteria?: No System Inflammatory Response Syndrome: Not Applicable Sepsis Protocol: For patient's 13 years and over: Temp is 96.8 and below OR 101 and greater Pulse >90 BPM Resp >20/minute Acutely Altered Mental Status Are patient's symptoms suggestive of a new infection, such as: -Pneumonia -Skin, Soft Tissue -Endocarditis -UTI -Bone, Joint Infection -Implantable Device -Acute Abdominal Infection -Wound Infection -Meningitis -Blood Stream Catheter Infection -Unknown GI Complaint Exam - Abdominal Pain Complaint/Exam Onset: Gradual Duration: 2 DAYS Symptoms Are: Still present Timing: Intermittent Initial Severity: Mild Current Severity: Mild Location of Pain: Diffuse Character: Reports: Cramping Aggravating: Reports: None Alleviating: Reports: None Associated Signs and Symptoms: Reports: Diarrhea. Denies: Diaphoresis, Fever, Cough, Chest pain, Dizziness, Back pain, Constipation, Blood in stool, Dysuria, Urinary frequency, Decreased urine output, Decreased appetite, Vaginal bleeding , Vaginal discharge, Nausea, Vomiting, Sore throat, Decreased activity AAA Risk Factors: Reports: Hypertension Cardiac Risk Factors: Reports: Hypertension Ectopic Risk Factors: Reports: None Ovarian Torsion Risk Factors: Reports: None Surgical Obstruction Risk Factors: Reports: None Related Surgical History: Reports: None Patient Rh Status: Unknown Abdominal Findings: Present: None Differential Diagnoses: Constipation, Diverticulitis, Gastroenteritis Quality Indicators for AMI: EKG in 10min. Review of Systems - Review Of Systems Constitutional: Reports: No symptoms Eyes: Reports: No symptoms Ears, Nose, Mouth, Throat: Reports: No symptoms Respiratory: Reports: No symptoms Cardiac: Reports: No symptoms GI: Reports: Diarrhea : Reports: No symptoms Musculoskeletal: Reports: No symptoms Skin: Reports: No symptoms Neurological: Reports: No symptoms Endocrine: Reports: No symptoms Hematologic/Lymphatic: Reports: No symptoms All Other Systems: Reviewed and Negative Past Medical History - Past Medical History Previously Healthy: Yes Endocrine: Reports: None Cardiovascular: Reports: Hypertension Respiratory: Reports: None Hematological: Reports: None Gastrointestinal: Reports: None Genitourinary: Reports: None 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 ), Unknown - Family History Family History: Reports: Unknown - Social History Smoking Status: Never smoker Hx Substance Use: No Alcohol Screening: None Physical Exam - Physical Exam Appearance: Well-appearing, No pain distress, Well-nourished Eyes: ANNELIESE, EOMI, Conjunctiva clear ENT: Ears normal, Nose normal, Oropharynx normal Respiratory: Airway patent, Breath sounds clear, Breath sounds equal, Respirations nonlabored Cardiovascular: RRR, Pulses normal, No rub, No murmur GI/: Soft, Nontender, No masses, Bowel sounds normal, No Organomegaly Musculoskeletal: Normal strength, ROM intact, No edema, No calf tenderness Skin: Warm, Dry, Normal color Neurological: Sensation intact, Motor intact, Reflexes intact, Cranial nerves intact, Alert, Oriented Psychiatric: Affect appropriate, Mood appropriate Critical Care Note - Critical Care Note Total Time (mins): 0 Course - Course Hematology/Chemistry: 10/03/18 11:55 10/03/18 11:55 Orders, Labs, Meds: Lab Review 10/03/18 10/03/18 11:55 11:55 WBC 4.07 L RBC 4.11 L Hgb 13.0 Hct 38.2 MCV 92.9 MCH 31.6 H MCHC 34.0 RDW Coeff of Vinicius 13.8 Plt Count 153 Immature Gran % (Auto) 0.2 Neut % (Auto) 69.9 Lymph % (Auto) 16.2 [place] % (Auto) 11.5 H Eos % (Auto) 2.0 Baso % (Auto) 0.2 Immature Gran # (Auto) 0.0 Neut # (Auto) 2.8 Lymph # (Auto) 0.7 [place] # (Auto) 0.5 Eos # (Auto) 0.1 Baso # (Auto) 0.0 Sodium 134.6 Potassium 4.65 Chloride 104.1 Carbon Dioxide 21.8 L Anion Gap 13.35 BUN 16.2 Creatinine 0.77 Estimated GFR (MDRD) 71.00 BUN/Creatinine Ratio 21.03 Glucose 94.8 Calcium 8.67 Total Bilirubin 0.59 AST 33.3 ALT 20.9 Alkaline Phosphatase 88.0 Total Protein 6.83 Albumin 4.44 Globulin 2.39 Albumin/Globulin Ratio 1.85 Orders Category Date Time Status C-DIFF MONITORING (NURSING) BID CARE 10/03/18 11:47 Active CBC W/ AUTO DIFF Stat LAB 10/03/18 11:55 Completed COMPREHENSIVE METABOLIC PANEL Stat LAB 10/03/18 11:55 Completed c-diff [C. DIFFICILE] Routine LAB 10/03/18 11:[address] ABDOMEN/PELVIS WO CONTRAST Stat RADS 10/03/18 11:47 Ordered Vital Signs: Temp Pulse Resp BP Pulse Ox 10/03/18 11:24 98.3 F 94 H 20 151/55 H 96 Departure - Departure Time of Disposition: 13:00 Disposition: HOME SELF-CARE Discharge Problem: Diarrhea Instructions: Acute Diarrhea (ED), Dehydration (ED) Condition: Good Pt referred to PMD for follow-up: Yes IPMP verified?: No Additional Instructions: Please call your Family Physician as soon as possible to schedule a follow-up appointment. Prescriptions: Diphenoxylate HCl/Atropine [Lomotil 2.5-0.025 mg Tablet] 1 each PO 6XD #8 tablet Allergies/Adverse Reactions: Allergies Penicillins Adverse Reaction (Verified 10/03/18 11:26) Home Medications: Ambulatory Orders Diphenoxylate HCl/Atropine [Lomotil 2.5-0.025 mg Tablet] 1 each PO 6XD #8 tablet 10/03/18 Donepezil HCl 5 mg PO DAILY 10/03/18 Mirtazapine [Remeron] 15 mg PO DAILY 10/03/18 Disposition Discussed With: Patient
--- NOTE | 2018-10-03 12:55 | CT ---
EXAM: CT ABDOMEN AND PELVIS HISTORY: Diarrhea, abdominal pain TECHNIQUE: CT abdomen and pelvis without intravenous contrast. Images were reconstructed using 5 mm section thickness. Reformations were prepared. COMPARISON: No comparison CT abdomen. Some comparison may be made to 09/24/2016 CT pelvis. FINDINGS: Diagnostic limitations may exist without including contrast enhanced images. No focal hepatic or spl enic lesions. Multiple tiny gallstones are present. No convincing CT evidence of acute cholecystiti s. Pancreas is within normal limits. No adrenal masses. 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 No convincing evidence of hydronephrosis. The patient has underwen t total hip arthroplasty bilaterally which leads artifact obscuring portions of the lower ureters and anatomic pelvis. Mild to moderate atherosclerotic disease. 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 Tiny sliding hiatal hernia. An appendix is not seen. There is moderate distal colon diverticulosis. Focal thickening of the left lateral portion of the transverse colon may be related to non distensi on and focal retained feces. No bowel obstruction is seen. Nonspecific bowel gas pattern with a few loops of mildly fluid distended small bowel. Urinary bladder is poorly seen secondary to artifact. It is uncertain whether uterus is present or not. No ascites is seen. Questionable 1 cm nodular opacity in the right lateral retroareolar region versus asymmetric breast t issue density distribution. The bones are demineralized. There is severe degenerative disc and face t disease of the lower spine. There is a moderately severe compression fracture at L2 which does not appear acute. Lung bases reveal scattered scarring. Questionable tiny pleural-based pulmonary nodu le posteriorly on the left measuring 6.4 mm. There is no pneumoperitoneum. IMPRESSION: 1. No bowel obstruction or definite active enterocolitis. There is distal colon diverticulosis. 2. Focal thickening of the left aspect of the transverse colon. This may be related to non distensi on or focal retained feces. Neoplasia not completely excluded. 3. Gallstones.. 4. Atherosclerosis. 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 5. Tiny sliding hiatal hernia. 6. Possible right breast nodule versus asymmetric distribution of breast density. 7. L2 vertebral body compression fracture does not appear acute. 8. A a 6.4 mm left lung base pleural based nodule. Consider follow-up CT thorax in 4-6 months.
== END 2018-10-03 13:50 | disposition home or self-care (01) ==
LOC: ED 11:23
DX: R19.7 Diarrhea, unspecified (principal); R10.84 Generalized abdominal pain; I10 Essential (primary) hypertension; R93.5 Abnormal findings on diagnostic imaging of other abdominal regions, including retroperitoneum; Z86.73 Personal history of transient ischemic attack (TIA), and cerebral infarction without residual deficits
CPT/HCPCS: 36415; 80053; 85025; 87493; 99283

== ENCOUNTER 2018-10-17 09:05 | Outpatient (CLI) ==
--- NOTE | 2018-10-17 09:50 | MAMMO ---
EXAM: Bilateral digital diagnostic mammogram (2-D and 3-D) History: Right breast nodule. Comparison: Bilateral mammogram 03/22/2011 Findings: MLO and CC views of bilateral breasts demonstrate scattered fibroglandular breast parenchy ma. Benign bilateral vascular and scattered calcifications. CAD was reviewed by the radiologist. T omosynthesis was performed. Impression: Benign stable mammogram. Recommend followup routine screening mammography in 1 year. BI-RADS 2, benign
--- NOTE | 2018-10-17 10:18 | DEXA ---
EXAM: Bone Densitometry DEXA HISTORY: Osteoporosis COMPARISON: None FINDINGS: DEXA scan of the lumbar spine was performed. Quality of the study is good. Bone mineral density is 1.205 grams per square centimeter. T-score is 0.2. Z-score is 2.5. IMPRESSION: Lumbar spine: Normal bone marrow density . Reference Values according to World Health Organization criteria: T score greater than -1 is normal T score -1 to -2.5 is osteopenia T score less than -2.5 is osteoporosis.
== END 2018-10-17 09:06 | disposition home or self-care (01) ==
LOC: RAD 09:05
PROVIDERS: ATTEND Family Medicine
DX: R92.8 Other abnormal and inconclusive findings on diagnostic imaging of breast (principal); N63.0 Unspecified lump in unspecified breast; M81.0 Age-related osteoporosis without current pathological fracture; Z87.81 Personal history of (healed) traumatic fracture